=== PATIENT | male | born 1960 | race Caucasian/White ===

== ENCOUNTER 2019-10-01 21:41 | Emergency (ER) | payer BC ==
[~2019-10-01] VITALS: Ht 182.9 cm; Wt 117.9 kg
[2019-10-01 22:00] VITALS: BP_SYST 135
[2019-10-01] MEDS ORDERED: CIPR-211 PO (22:12)
[2019-10-01] MEDS ORDERED: LISI10TA PO (22:12)
[2019-10-01 22:23] LABS: BILIRUBIN,URINE NEGATIVE (NEGATIVE); BLOOD, URINE 1+ (NEGATIVE); CLARITY/URINE CLEAR (CLEAR); COLOR,URINE YELLOW (YELLOW); GLUCOSE,URINE NEGATIVE (NEGATIVE); KETONES,URINE NEGATIVE (NEGATIVE); LEUKOCYTE ESTERASE ,URINE NEGATIVE (NEGATIVE); NITRITE, URINE NEGATIVE (NEGATIVE); PH,URINE 5.5 (5.0-8.0); PROTEIN URINE NEGATIVE (NEGATIVE); UROBILINOGEN,URINE 0.2 (0.2-1.0)
[2019-10-01 22:34] LABS: BACTERIA,URINE FEW /HPF (None Seen); WBC,URINE 0-3 /HPF (0-3)
[2019-10-01] MEDS ORDERED: MORPHINE 4 MG/ML INJ. SYRINGE IM ONE (22:45)
[2019-10-01 23:46] LABS: CALCIUM 8.1 mg/dL (8.4-11.0); CREATININE 1.86 mg/dL (0.55-1.30); POTASSIUM 4.3 mmol/L (3.5-5.1)
[2019-10-02] MEDS ORDERED: NACL 0.9% 1,000 ML IV ONE
[2019-10-02] MEDS ORDERED: HYDROcodone/ACETAMIN 5-325 MG TAB (NORCO/ VICODIN) PO ONE (00:15)
[2019-10-02 00:35] VITALS: BP_SYST 137
== END 2019-10-02 00:35 | disposition home or self-care (01) ==
LOC: SED 21:41
DX: N23 Unspecified renal colic (principal); N28.9 Disorder of kidney and ureter, unspecified; R11.2 Nausea with vomiting, unspecified
CPT/HCPCS: 36415; 74176; 80048; 81000; 87086; 96360; 96372; 99284; J2270; J7030